=== PATIENT | male | born 1960 | race Caucasian/White ===

== ENCOUNTER → 2018-04-01 | Outpatient (REF) | payer OTHER | LOC: M SFHCLERA 12:29 | DX: R10.30 Lower abdominal pain, unspecified (principal) ==

== ENCOUNTER → 2021-07-21 | Outpatient (CLI) | payer BC ==
--- NOTE | 2021-07-21 12:04 | REP ---
INDICATION: NICOTINE DEPENDENCE COMPARISON: None. TECHNIQUE: Axial noncontrast images from the thoracic inlet to the upper abdomen using low-dose lung screening technique (LDCT). FINDINGS: There is a 13 x 5 mm noncalcified nodule in the right apex. Few smaller 2-3 mm noncalcified densities are also appreciated which themselves are nonspecific and possibly chronic. No further acute consolidation. No effusion. No pneumothorax. Tracheobronchial tree is patent. IMPRESSION: Lung-RADS category 4A lesion in the right apex. No prior examinations are available for comparison. Three month follow-up and/or PET-CT recommended. <Electronically signed by Seymour Cruz > 07/21/21 [id number]
== END ==
LOC: M RAD 10:36
PROVIDERS: ATTEND Family Medicine
DX: R91.8 Other nonspecific abnormal finding of lung field (principal); F17.210 Nicotine dependence, cigarettes, uncomplicated

== ENCOUNTER → 2021-08-14 | Outpatient (CLI) | payer BC ==
--- NOTE | 2021-08-15 09:33 | REP ---
INDICATION: STAGING SOLITARY PULMONARY NODULE R91.1. COMPARISON: Prior low-dose screening CT examination of the lungs of 07/21/2021. There are no prior PET CTs for comparison. TECHNIQUE: After the intravenous administration of 8.80 mCi of FDG 18 triplane whole-body PET-CT was performed from the skull base to the mid thigh. FINDINGS: The 1.3 cm size nodule seen in the right lung apical region is not abnormally hypermetabolic. In fact, there is no measurable FDG uptake within this lesion. There is a focus of hypermetabolic activity seen within the gallbladder with a maximal SUV value of 3.5. There are no other areas of abnormal hypermetabolic activity seen in the neck, chest, abdomen, or pelvis. IMPRESSION: There is a focus of hypermetabolic activity seen within the gallbladder as described above likely secondary to cholelithiasis although none are identifiable by CT. Follow-up with right upper quadrant ultrasonography if clinically relevant. No abnormal hypermetabolic activity is identified as described above. <Electronically signed by Sarthak Lagunas > 08/15/21 [id number]
== END ==
LOC: M PLARAD 09:45
PROVIDERS: ATTEND Family Medicine
DX: R91.1 Solitary pulmonary nodule (principal); F17.210 Nicotine dependence, cigarettes, uncomplicated
CPT/HCPCS: 78815; A9552

== ENCOUNTER → 2022-02-08 | Outpatient (REF) | payer BC | LOC: M LAB REF 22:13 | PROVIDERS: ATTEND Physician Assistant | DX: S81.809A Unspecified open wound, unspecified lower leg, initial encounter (principal); X58.XXXA Exposure to other specified factors, initial encounter; Y92.9 Unspecified place or not applicable; Y93.9 Activity, unspecified; Y99.9 Unspecified external cause status ==

== ENCOUNTER → 2023-01-07 | Outpatient (CLI) | payer BC | LOC: M PLARAD 09:29 | PROVIDERS: ATTEND Family Medicine | DX: R91.1 Solitary pulmonary nodule (principal) | CPT/HCPCS: 78815; A9552 ==

== ENCOUNTER → 2024-01-15 | Outpatient (CLI) | payer BC | LOC: M RAD 14:40 | PROVIDERS: ATTEND Internal Medicine Pulmonary Disease | DX: Z12.2 Encounter for screening for malignant neoplasm of respiratory organs (principal); F17.218 Nicotine dependence, cigarettes, with other nicotine-induced disorders; R91.8 Other nonspecific abnormal finding of lung field ==

== ENCOUNTER → 2025-02-23 | Outpatient (CLI) | payer BC | LOC: M RAD 07:48 | PROVIDERS: ATTEND Internal Medicine Pulmonary Disease | DX: Z12.2 Encounter for screening for malignant neoplasm of respiratory organs (principal); F17.218 Nicotine dependence, cigarettes, with other nicotine-induced disorders ==